=== PATIENT | female | born 1990 | race Caucasian/White ===

== ENCOUNTER 2023-07-27 13:44 | Day surgery (SDC) | payer BC, OTHER ==
[~2023-07-27] VITALS: Ht 152.4 cm; Wt 68.2 kg
[~2023-07-27 13:44] MED LIST: LR 1,000 ML IV SCH; Ondansetron 4 MG/2 ML VIAL IV PRN
[2023-07-27] MEDS ORDERED: Lidocaine PF 2% (20 MG/ML) 5 ML VIAL ONE (15:06)
[2023-07-27] MEDS ORDERED: PROTONIX 40MG T40 MG PO (15:24)
[2023-07-27 15:36] VITALS: BP 110/67; PULSE 75; TEMP 97
--- NOTE | 2023-07-27 15:36 | NUR ---
PATIENT AMBULATED TO CHAIR WITH STEADY GAIT, ASSIST OF 2. ALERT AND AWAKE. DENIES PAIN, NAUSEA AND SHORTNESS OF BREATH. BREATHING REGULAR AND UNLABORED ON ROOM AIR. SKIN WARM AND DRY. IV IN PLACE. NURSE HANDOFF COMPLETED IN ROOM. SEE CHART FOR VITAL SIGNS. PATIENT HAD WATER, APPLE JUICE AND A MUFFIN. FOOD AND DRINK TOLERATED WELL, NO DYSPHAGIA. CALL LIGHT IN REACH. SPOUSE PRESENT IN ROOM.
[2023-07-27 15:45] VITALS: BP 113/71; PULSE 71
[2023-07-27 16:00] VITALS: BP 103/71; PULSE 78
[2023-07-27 16:04] VITALS: BP 108/74; PULSE 69; TEMP 97.9
--- NOTE | 2023-07-27 16:06 | NUR ---
1415 Pt ambulatory to bay 4 with a steady gait, breathing even and unlabored. Pt is alert and oriented, accompanied by her . Consents reviewed and signed by pt. IV established. LR infusing via gravity at KVO. Call light in reach. Warm blanket provided.
[2023-07-27 16:15] VITALS: BP 116/67; PULSE 74
[2023-07-27 16:30] VITALS: BP 109/74; PULSE 71
--- NOTE | 2023-07-27 16:41 | NUR ---
1600: MET WITH PATIENT AND SPOUSE IN ROOM TO DISCUSS PROCEDURE. 1627: DISCHARGE TEACHING COMPLETED WITH PRINTED EDUCATION AND INSTRUCTIONS SENT HOME WITH PATIENT. PATIENT VERBALIZED UNDERSTANDING OF TEACHING. 1638: IV REMOVED. GAUZE AND COBAN PLACED OVER SITE. PATIENT AMBULATED TO RESTROOM WITH STEADY GAIT AND VOIDED. 1641:PATIENT DISCHARGED HOME WITH [facility].
== END 2023-07-27 16:41 | disposition home or self-care (01) ==
LOC: SDCO 13:44
DX: K29.30 Chronic superficial gastritis without bleeding (principal); K21.00 Gastro-esophageal reflux disease with esophagitis, without bleeding; K25.9 Gastric ulcer, unspecified as acute or chronic, without hemorrhage or perforation; K44.9 Diaphragmatic hernia without obstruction or gangrene; R74.01 Elevation of levels of liver transaminase levels
CPT/HCPCS: J2704; J7120